=== PATIENT | female | born 1935 | race Two or more races ===

== ENCOUNTER 2024-04-16 11:38 | Emergency (ER) | payer MEDICARE, MEDICAID, SELFPAY ==
--- NOTE | 2024-04-16 11:54 | XR_ITS ---
Examination: CT cervical spine without contrast 2-D sagittal reconstructions 2-D coronal reconstructions 3-D reconstructions. Exam date and time:April 16, 2024 at 1311 hours INDICATIONS: Syncopal episode, patient fell today with injury to the neck, neck pain CTDI:vol (mGy) 7.84 DLP: (mGycm) 171 Technique: Multiple 2 mm axial sections of the cervical spine have been obtained. The coronal and sagittal reconstructions have been obtained. 3-D reconstructions have been obtained. Low dose protocols were performed. One or more of the following dose reduction techniques were used; automated exposure control, adjustment of the mA and/or KV according to patient size, use of iterative reconstruction technique. Findings: Axial sections demonstrate intact base of the skull. Cervical fusion C4-C6 with anatomic alignment C1 exhibit satisfactory relationship to the odontoid. No acute cervical vertebral body fracture seen. Alignment posterior spinous processes satisfactory. Impression: No acute cervical fracture.
--- NOTE | 2024-04-16 11:54 | XR_ITS ---
Examination: CT brain head without contrast. 2-D sagittal coronal reconstructions Date and time of exam:April 16, 2024 1311 hours Comparison December 12, 2022 INDICATIONS: Single episode today, patient fell CTDI: vol (mGy):46 DLP: (mGycm):921 Technique: Multiple CT axial sections of the brain have been obtained, 5 mm slice thickness. Contrast has not been administered. 2-D sagittal, coronal reconstructions have been obtained Low dose protocols were performed. One or more of the following dose reduction techniques were used; automated exposure control, adjustment of the mA and/or KV according to patient size, use of iterative reconstruction technique. Findings: No significant ventricular enlargement. Intra-axial or extra-axial hemorrhage density is not seen. No mass effect or midline shift Basal cisterns are not remarkable. Fourth ventricle is midline. 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
--- NOTE | 2024-04-16 11:54 | EKG_ITS ---
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
--- NOTE | 2024-04-16 11:55 | PD.EDADULT ---
ED General RME/HPI General Chief complaint: Syncope / Near Syncope Stated complaint: SYNCOPE Time Seen by Provider: 04/16/24 11:53 Arrival date/time: 04/16/24 11:38 CC: Syncope resulting in ground-level fall HPI patient presents to the ER via EMS from the clinic. The patient states that she had a recent surgery on the right side of the head, she states she feels fluid dripping down side of her head , and this caused her to be lightheaded and dizzy. Patient has no external wound on the right side of her head. EMS reports stable vital signs and route. Currently patient is complaining of back pain dizziness Related Data Home Medications ?Medication ?Instructions ?Recorded ?Confirmed amlodipine 5 mg tablet 5 mg PO QDAY 04/16/24 04/16/24 levothyroxine 25 mcg capsule 25 mcg PO DAILY 04/16/24 04/16/24 (Tirosint) lisinopril 5 mg tablet 5 mg PO QDAY 04/16/24 04/16/24 metoprolol succinate 25 mg 25 mg PO DAILY 04/16/24 04/16/24 tablet,extended release 24 hr omeprazole 20 mg tablet,delayed 20 mg PO QDAY 04/16/24 04/16/24 release simvastatin 10 mg tablet 10 mg QPM 04/16/24 04/16/24 Allergies Allergy/AdvReac Type Severity Reaction Status Date / Time cholecalciferol (vitamin D3) Allergy Severe Hives Verified 04/16/24 12:37 [From Vitamin D3] ergocalciferol (vitamin D2) Allergy Severe Hives Verified 04/16/24 12:37 [From Vitamin D2] Review of Systems Review of Systems Narrative Review of Systems: GEN: No fever, no chills, no weight loss EYES: No discharge, no visual changes, no pain HEENT: No ear pain, no congestion, no sore throat PULM: No shortness of breath, no cough, no congestion CV: No chest pain, no dyspnea on exertion, no palpitations GI: No nausea, no vomiting, no diarrhea, no pain, no constipation : No frequency, no urgency, no dysuria MUSC/SKEL: No joint pain, + back pain SKIN: No rash PSYCH: No hallucinations, no depression HEME/LYMPH: No easy bleeding or bruising tendencies NEURO: No weakness, +headache ED Exam Narrative Physical exam: [General: Thin but not frail or emaciated, in mild discomfort but not in any acute distress Head normocephalic no step-offs hematomas open lesions abrasions indurations or ulcerations. HEENT: Eyes: Pupils are PERRLA EOMs are intact. Nose no rhinorrhea epistaxis mouth: [place] dry membranes uvula is midline swallow symmetrical phonation is normal all other subsystems of HEENT are within acceptable limits Neck is supple nontender full range of motion flexion extension rotation and no tenderness with palpation of the cervical spine processes Chest equal chest rise nontender to palpation Respiratory: Clear to auscultation no wheezes crackles or rubs CV: Rate rhythm is regular no murmurs rubs or clicks Abdomen is soft nontender no masses positive bowel sounds all 4 quadrants Back: No CVA tenderness no spinous process tenderness from cervical spine thoracic and lumbar spine Skin: Intact no petechiae rash induration ulceration or crepitus Extremities: Moving all extremity against resistance cap refill less than 2 seconds neurosensory intact Neuro: Awake alert oriented x2, person and place, [place]ow coma 15 no focal deficits] Course Quality Measures none Orders Category Date Time Status EKG (ED ONLY) *Do not use* NOW Care 04/16/24 11:[address] cervical spine wo con Stat Exams 04/16/24 11:[address] head/brain wo con Stat Exams 04/16/24 11:54 Completed EKG (ED Only) Stat Exams 04/16/24 11:54 Draft XR lumbar spine 2-3V Stat Exams 04/16/24 12:00 Completed XR thoracic spine 2V Stat Exams 04/16/24 12:00 Completed B-Type Natriuretic Peptide Stat Lab 04/16/24 12:35 Completed CBC Stat Lab 04/16/24 12:35 Completed Comprehensive Metabolic Panel Stat Lab 04/16/24 12:35 Completed Drug Screen,Urine Stat Lab 04/16/24 15:06 Completed LDH (Lactate Dehydrogenase) Stat Lab 04/16/24 12:35 Completed Magnesium Stat Lab 04/16/24 12:35 Completed Partial Thromboplastin Time Stat Lab 04/16/24 12:35 Completed Prothrombin Time with INR Stat Lab 04/16/24 12:35 Completed Troponin I Stat Lab 04/16/24 12:35 Completed Urinalysis Stat Lab 04/16/24 15:06 Completed Vital Signs Vital signs: Vital Signs Temperature 97.4 F 11/12/24 11:58 Pulse Rate 47 L 04/16/24 11:58 Respiratory Rate 13 04/16/24 11:58 Blood Pressure 92/48 L 04/16/24 11:58 Pulse Oximetry (%) 95 04/16/24 11:58 Oxygen Delivery Method Room Air 04/16/24 11:58 [facility] Patient data External records reviewed:: [facility] previous records and EMS form Clinical information provided by:: patient and EMS Social determinants that could affect healthcare access:: none Patient has the following chronic illnesses:: Hypertension hyperlipidemia question of a recent cranial surgery How is presenting disease/condition affected by chronic disease/condition?: uneffected by Evaluation data The following diagnostics were reviewed and interpreted by me:: lab results, radiology exam(s) and EKG tracing(s) Lab and/or radiology exams considered but not ordered:: EKG performed at 1218 shows a ventricular rate of 5 2 SC interval 210 QRS of 74 QTc of 423 this is bradycardia with first-degree block. No old EKG for comparison. CBC shows no acute leukocytosis anemia thrombocytopenia CMP shows no acute electrolyte imbalances renal impairment transaminitis or T. bili elevation CT head and C-spine is negative for any acute finding requires emergent or immediate intervention as interpreted by me and read by radiology Urine is negative for urinary tract infection UDS is negative. Interpretation Summary: Patient most likely had a simple syncopal event, there is no acute finding quires emergent immediate intervention, the patient will be discharged home recommended to family members at bedside to give the patient a walker. Medications Medications considered but not ordered:: None Medication administrations:: None Consultations Consultation(s) initiated? (list below): No Diagnosis Differential Diagnosis ED Complaint MDM: Closed injury neck fracture [place] Most likely diagnosis given after review of the tests above:: Syncope Admission Indicated Admission indicated?: not indicated Explain why admission is indicated or not indicated:: Stable for outpatient follow-up Admission Request Was there a request for admission?: No Disposition Plan Disposition Plan: Discharge Discharge Attestation Discharge Attestation: The patient and all family members were given an opportunity to ask questions and understood the discharge instructions. Discharge instructions specifically effects, indications for sooner follow up or return to the emergency department, and the expected course of current diagnosis. Patient condition: Stable Medical Decision Making Differential Diagnosis Differential Diagnosis: Closed injury neck fracture [place] Lab Data 04/16/24 12:35 11/12/24 12:35 Labs: Lab Results 04/16/24 04/16/24 Range/Units 12:35 15:06 WBC 5.7 (3.6-11.0) Thou/mm3 RBC 4.58 (4.00-5.20) Miln/mm3 Hgb 14.5 (12.0-16.0) g/dL Hct 44.8 (36.0-46.0) % MCV 98 (80-100) fL MCH 31.7 (25.0-35.0) pg MCHC 32.4 (31.0-37.0) g/dl RDW Std Deviation 47.5 H (36.4-46.3) fL Plt Count 165 (140-440) Thou/mm3 Neut % (Auto) 67 (37-80) % Lymph % (Auto) 20 (10-50) % [place] % (Auto) 9 (0-12) % Eos % (Auto) 3 (0-10) % Baso % (Auto) 0 (0-2.5) % Neut # (Auto) 3.8 (1.8-7.7) Thou/mm3 Lymph # (Auto) 1.2 (1.0-4.8) Thou/mm3 [place] # (Auto) 0.5 (0.0-0.8) Thou/mm3 Eos # (Auto) 0.1 (0.0-0.5) Thou/mm3 Baso # (Auto) 0.0 (0.0-0.2) Thou/mm3 Immature Gran # (Auto) 0.03 H (0.00-0.00) Thou/mm3 Absolute Nucleated RBC 0.00 (0.00-0.00) Thou/mm3 Immature Gran % 1 H (0-0) % Nucleated RBC % 0 (0) /100 WBC PT 11.4 (9.0-12.2) Seconds INR 1.0 (0.9-1.3) APTT 27.9 (22.0-36.0) Seconds Sodium 136 (136-145) mMol/L Potassium 5.5 H (3.4-5.1) mMol/L Chloride 106 (98-107) mMol/L Carbon Dioxide 27.8 (20.0-31.0) mMol/L Anion Gap 2 L (7-16) BUN 17 (9-23) mg/dL Creatinine 1.0 (0.6-1.3) mg/dL Estim Creat Clear Calc 30.8 L (>60) mL/min eGFR 54 L (60 - ) See Note BUN/Creatinine Ratio 17 (12-20) Ratio Glucose 119 H (74-106) mg/dL Calculated Osmolality 274 L (275-295) Calcium 9.5 (8.3-10.6) mg/dL Corrected Calcium 9.5 (8.5-10.1) mg/dL Magnesium 2.2 (1.6-2.6) mg/dL Total Bilirubin 0.5 (0.3-1.2) mg/dL AST 28 (0-34) U/L ALT 13 (10-49) U/L Alkaline Phosphatase 129 H (46-116) U/L Lactate Dehydrogenase 200 (120-246) U/L Troponin I < 0.020 (0.0-0.045) ng/mL B-Natriuretic Peptide 68 (0-100) pg/mL Total Protein 6.4 (5.7-8.2) gm/dL Albumin 4.2 (3.4-4.8) gm/dL Globulin 2.2 L (2.3-3.5) gm/dL Albumin/Globulin Ratio 1.9 (1.2-2.2) Ur Collection Type Clean Catch Urine Color Lt-Yellow (Lt Yel-Yel) Urine Clarity Clear (Clear/Hazy) Urine pH 7.0 (5.0-7.0) Ur Specific [place] 1.008 (1.001-1.035) Urine Protein Negative (Neg - Trace) Urine Glucose (UA) Negative (Negative) Urine Ketones Negative (Negative) Urine Blood Negative (Negative) Urine Nitrite Negative (Negative) Urine Bilirubin Negative (Negative) Urine Urobilinogen (Auto) Negative (0.0-1.0) mg/dL Ur Leukocyte Esterase Positive (Negative) Urine RBC 4 H (0-3) /hpf Urine WBC 62 H (0-5) /hpf Ur Squamous Epith Cells 1 (0-5) /hpf Urine Bacteria None (None) Urine Opiates Screen Negative (Negative) Urine Fentanyl Screen Negative (Negative) Ur Barbiturates Screen Negative (Negative) U Amphetamin/Meth Scrn Negative (Negative) U Benzodiazepines Scrn Negative (Negative) U Cocaine Metab Screen Negative (Negative) U Marijuana (THC) Screen Negative (Negative) Discharge Plan Plan Patient Disposition: HOME (Self Care) Patient condition on transfer: Stable Prescriptions/Referrals Prescriptions/Med Rec: No Action amlodipine 5 mg Tablet 5 mg PO QDAY lisinopril 5 mg Tablet 5 mg PO QDAY metoprolol succinate 25 mg Tablet Extended Release 24 Hr 25 mg PO DAILY simvastatin 10 mg Tablet 10 mg QPM omeprazole 20 mg Tablet,Delayed Release (Dr/Ec) 20 mg PO QDAY Rx Instructions: take 30 mins before every meal levothyroxine [Tirosint] 25 mcg Capsule 25 mcg PO DAILY Referrals: Dana Roy PA-C [Primary Care Provider] - In 1 week Problem List Clinical Impression: Syncope, Ground-level fall Patient/Caregiver Discharge Instructions Education Materials: Causes of Syncope Additional Instructions: Consider using a walker on a regular basis if there are any return of the symptoms return immediately to the emergency room for further evaluation. Print Language: Kiswahili Stand Alone Forms: Shruti Award Info., Patient Portal Info Letter PA/PUBLIC SAFETY DISPATCHER Supervising Physician PA/PUBLIC SAFETY DISPATCHER Supervising Physician: Venkat Gomez ENP
[2024-04-16 11:58] VITALS: BP 92/48; PULSE 47; RESP 13; TEMP 36.3; O2SAT 95
--- NOTE | 2024-04-16 12:00 | XR_ITS ---
Examination: Lumbar spine 3 views TECHNIQUE: AP lateral coned lateral lower lumbar spine 3 views Exam date and time: April 16, 2024 1249 hours INDICATIONS: Patient fell today with injury of the lower back, lower back pain FINDINGS: Severe osteopenia Transpedicular lumbar fusion L4-S1 with satisfactory alignment Mild chronic osteoporotic depression superior endplate L3, L2, L1, T12, T11, T10 No acute fracture IMPRESSION: No acute fracture
--- NOTE | 2024-04-16 12:00 | XR_ITS ---
Examination: Thoracic spine 3 views TECHNIQUE: AP lateral coned lateral upper dorsal spine 3 views Exam date and time: April 16, 2024 1242 hours INDICATIONS: Patient fell today with injury to the upper back upper back pain FINDINGS: Thoracic dextroscoliosis 15 degrees Severe osteopenia No acute thoracic fracture Moderate thoracic spondylosis IMPRESSION: No acute thoracic fracture
[2024-04-16 12:05] VITALS: BP 129/64; PULSE 50; PULSE 54; RESP 16; TEMP 36.6; O2SAT 95; O2SAT 96; BMI 23.0
--- NOTE | 2024-04-16 12:05 | PC.NURSE ---
ALICIA s/p Syncopal episode at primary MD appointment visit. Pt does not remember what happened; possible LOC. Pt only remembers waking up. Pt remembers staff bringing her up on a chair. Upon arrival, pt alert & awake; pt GCS 15, A&Ox4, answering questions appropriately.
[2024-04-16 12:42] LABS: Basophils % (Auto) 0 % (0-2.5); Eosinophils # (Auto) 0.1 Thou/mm3 (0.0-0.5); Eosinophils % (Auto) 3 % (0-10); Hematocrit 44.8 % (36.0-46.0); Hemoglobin 14.5 g/dL (12.0-16.0); Immature Granulocytes % (Auto) 1 % (0-0); Immature Granulocytes Auto 0.03 Thou/mm3 (0.00-0.00); Lymphocytes # (Auto) 1.2 Thou/mm3 (1.0-4.8); Lymphocytes % (Auto) 20 % (10-50); Mean Corpuscular HGB Conc 32.4 g/dl (31.0-37.0); Mean Corpuscular Hemoglobin 31.7 pg (25.0-35.0); Mean Corpuscular Volume 98 fL (80-100); Monocytes # (Auto) 0.5 Thou/mm3 (0.0-0.8); Monocytes % (Auto) 9 % (0-12); Neutrophils # (Auto) 3.8 Thou/mm3 (1.8-7.7); Neutrophils % (Auto) 67 % (37-80); Nucleated Red Blood Cell % 0 /100 WBC (0); Platelet Count 165 Thou/mm3 (140-440); RDW Standard Deviation 47.5 fL (36.4-46.3); Red Blood Count 4.58 Miln/mm3 (4.00-5.20); White Blood Count 5.7 Thou/mm3 (3.6-11.0)
[2024-04-16 12:58] LABS: Partial Thromboplastin Time 27.9 Seconds (22.0-36.0); Prothrombin Time 11.4 Seconds (9.0-12.2)
[2024-04-16 13:00] LABS: B-Type Natriuretic Peptide 68 pg/mL (0-100)
[2024-04-16 13:01] LABS: Alanine Aminotransferase 13 U/L (10-49); Albumin, Serum 4.2 gm/dL (3.4-4.8); Albumin/Globulin Ratio 1.9 (1.2-2.2); Alkaline Phosphatase 129 U/L (46-116); Anion Gap 2 (7-16); Aspartate Amino Transferase 28 U/L (0-34); BUN/Creatinine Ratio 17 Ratio (12-20); Bilirubin,Total 0.5 mg/dL (0.3-1.2); Blood Urea Nitrogen 17 mg/dL (9-23); Calcium 9.5 mg/dL (8.3-10.6); Calcium (Corrected) 9.5 mg/dL (8.5-10.1); Carbon Dioxide 27.8 mMol/L (20.0-31.0); Chloride 106 mMol/L (98-107); Estimated Creatinine Clearance 30.8 mL/min (>60); Globulin 2.2 gm/dL (2.3-3.5); Glucose 119 mg/dL (74-106); LDH (Lactate Dehydrogenase) 200 U/L (120-246); Magnesium 2.2 mg/dL (1.6-2.6); Osmolality,Calculated 274 (275-295); Potassium 5.5 mMol/L (3.4-5.1); Sodium 136 mMol/L (136-145); Total Protein 6.4 gm/dL (5.7-8.2); Troponin I < 0.020 ng/mL (0.0-0.045); eGFR 54 See Note
[2024-04-16 14:00] VITALS: PULSE 51; RESP 16; O2SAT 98
[2024-04-16 15:00] VITALS: BP 159/67; PULSE 51; RESP 16; O2SAT 95
[2024-04-16 15:14] LABS: Collection Type, Urine Clean Catch
[2024-04-16 15:31] LABS: Bilirubin,Urine Negative (Negative); Blood,Urine Negative (Negative); Clarity,Urine Clear (Clear/Hazy); Color,Urine Lt-Yellow (Lt Yel-Yel); Glucose, Urine Negative (Negative); Ketones,Urine Negative (Negative); Leukocyte Esterase,Urine Positive (Negative); Nitrite,Urine Negative (Negative); Protein,Urine Negative (Neg - Trace); RBC,Urine 4 /hpf (0-3); Specific Gravity,Urine 1.008 (1.001-1.035); Squamous Epithelial Cell,Urine 1 /hpf (0-5); Urobilinogen,Urine Negative mg/dL (0.0-1.0); WBC,Urine 62 /hpf (0-5)
[2024-04-16 15:46] LABS: Amphetamine/Methamp Scrn,U Negative (Negative); Barbiturate Screen,Urine Negative (Negative); Benzodiazepines Screen,Urine Negative (Negative); Benzoylecgonine Screen, Ur Negative (Negative); Fentanyl Screen,Urine Negative (Negative); Opiate Screen,Urine Negative (Negative); THC Screen,Urine Negative (Negative)
[2024-04-16 16:00] VITALS: BP 177/61; PULSE 50; RESP 13; TEMP 35.5; O2SAT 98
--- NOTE | 2024-04-16 16:00 | PC.NURSE ---
Pt given linen change & given more warm blankets at this time.
== END 2024-04-16 17:08 | disposition home or self-care (01) ==
PROVIDERS: Registered Nurse General Practice; Emergency Provider Emergency Medicine; PCP Physician Assistant
DX: R55 Syncope and collapse (principal); R42 Dizziness and giddiness; S19.9XXA Unspecified injury of neck, initial encounter; S39.92XA Unspecified injury of lower back, initial encounter; S29.9XXA Unspecified injury of thorax, initial encounter; W18.30XA Fall on same level, unspecified, initial encounter; I10 Essential (primary) hypertension; I44.0 Atrioventricular block, first degree
CPT/HCPCS: 36415; 70450; 72070; 72072; 72100; 72125; 80053; 80307; 81001; 83615; 83735; 83880; 84484; 85025; 85610; 85730; 93005; 99284

== ENCOUNTER → 2024-11-27 | Outpatient (CLI) | payer MEDICARE, MEDICAID, SELFPAY ==
--- NOTE | 2024-11-27 12:43 | XR_ITS ---
Examination: Lumbar spine 3 views Technique one AP lateral coned lateral lower lumbar spine 3 views Date and time: November 27, 2024 1339 hours INDICATIONS: Patient fell 2 weeks ago with injury to the back, back pain. FINDINGS: Severe osteopenia Lumbar fusion L2 4 through S1 with anatomic alignment Moderate disc narrowing L3-L4 No lumbar fracture IMPRESSION: No lumbar fracture
== END | disposition home or self-care (01) ==
LOC: CDIM 12:26
PROVIDERS: PCP Physician Assistant; Referring Provider Orthopaedic Surgery; Visit Provider Orthopaedic Surgery
DX: M51.16 Intervertebral disc disorders with radiculopathy, lumbar region (principal)
CPT/HCPCS: 72100

== ENCOUNTER → 2025-03-19 | Outpatient (CLI) | payer MEDICARE, MEDICAID, SELFPAY ==
--- NOTE | 2025-03-19 11:15 | XR_ITS ---
Examination: Foot, left, 3 views Technique: AP, oblique, lateral views foot, 3 views Date and time of exam: March 19, 2025, 1120 hours INDICATIONS: Chronic left foot pain years. 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 Severe osteopenia. Soft tissue vascular calcification. No fracture. Small plantar posterior bony calcaneal spurs. 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
--- NOTE | 2025-03-19 11:15 | XR_ITS ---
Examination: Abdomen AP single view Technique: AP portable supine abdomen, single view Exam date and time: March 19, 2025, 1112 hours INDICATIONS: Generalized abdominal pain today FINDINGS: Nonobstructive bowel gas pattern Transpedicular lumbar fusion L4-S1 Moderate narrowing hip joints Prominent osteopenia No free air. Surgical clips upper right abdomen Suspicious for 8 cm lower pole left renal cyst IMPRESSION: Nonobstructive bowel gas pattern Consider renal sonography follow-up to exclude 8 cm left renal cyst
--- NOTE | 2025-03-19 11:16 | XR_ITS ---
EXAMINATION: PA lateral chest 2 views TECHNIQUE: Upright PA lateral chest 2 views Date and time: March 19, 2025 at 11:26 a.m. INDICATIONS: Acute coughing this week. FINDINGS: Normal heart size The lungs are clear. The osseous structures are demineralized with mild to moderate diffuse thoracic degenerative disc disease IMPRESSION: No pneumonia or pulmonary edema
== END | disposition home or self-care (01) ==
LOC: SDIM 10:50
PROVIDERS: PCP Physician Assistant; Referring Provider Physician Assistant; Visit Provider Physician Assistant
DX: R05.1 Acute cough (principal); R10.9 Unspecified abdominal pain; M21.612 Bunion of left foot; M19.072 Primary osteoarthritis, left ankle and foot
CPT/HCPCS: 71046; 73630; 74018